=== PATIENT | female | born 1970 | race African-American/Black ===

== ENCOUNTER 2019-04-17 15:48 | Inpatient (IN) | payer OTHER ==
--- NOTE | 2019-04-17 16:25 | PDOC ---
History of Present Illness - General Chief Complaint: Head/Neck problem Stated Complaint: POSSIBLE STROKE Time Seen by Provider: 04/17/19 16:09 - History of Present Illness Initial Comments: Ms. Melchor is a 48 y/o female with PMH significant for DM, TIA 2 years ago, ovarian and cervical CA, brain CA, presenting today with numbness in the right hand that started 1 hour ago while she was shopping. Also reports bilateral facial numbness. Reports that numbness does not go past the right wrist. No pain over the arm. No headache. No speech slurring. No weakness. No fall. Reports that the facial numbness has resolved and the right hand numbness as mostly resolved. She had a TIA 2 years ago, and had similar symptoms of numbness of the left hand without any residual deficits. Past History - Past Medical History Allergies/Adverse Reactions: Allergies Allergy/AdvReac Type Severity Reaction Status Date / Time azithromycin [From Zithromax] Allergy Verified 04/17/19 16:28 Home Medications: Ambulatory Orders Aspirin [ASA -] 325 mg PO DAILY 04/17/19 Glyburide 5 mg PO DAILY 04/17/19 Valacyclovir HCl [Valtrex] 500 mg PO DAILY 04/17/19 metFORMIN HCL [Metformin HCl] 500 mg PO DAILY 04/17/19 Review of Systems - Review of Systems Comments:: GENERAL/CONSTITUTIONAL: No fever or chills. No weakness._ HEAD, EYES, EARS, NOSE AND THROAT: No change in vision. No change in hearing. No sore throat. Reports bilateral facial numbness. CARDIOVASCULAR: No chest pain or shortness of breath_ RESPIRATORY: Denies cough, hemoptysis_ GASTROINTESTINAL: No nausea, vomiting, diarrhea or constipation._ GENITOURINARY: No dysuria, frequency, or change in urination._ MUSCULOSKELETAL: Reports right hand numbness. SKIN: No rash_ NEUROLOGIC: No headache, vertigo, loss of consciousness, or change in strength/ sensation._ ENDOCRINE: No increased thirst. No abnormal weight change_ HEMATOLOGIC/LYMPHATIC: No anemia, easy bleeding, or history of blood clots._ ALLERGIC/IMMUNOLOGIC: No hives or skin allergy._ *Physical Exam - Physical Exam GENERAL: Awake, alert, and oriented to person/place/time, in no acute distress_ HEAD: No signs of trauma, normoc ephalic, atraumatic _ EYES: PERRLA, EOMI, sclera anicteric, conjunctiva clear_ ENT: Hearing grossly normal, nares patent, oropharynx clear without exudates. No uvular deviation. Moist mucosa_ NECK: Normal ROM, supple, no lymphadenopathy, JVD, or masses_ LUNGS: No distress, speaks in full sentences, clear to auscultation bilaterally _ HEART: Regular rate and rhythm, normal S1 and S2, no murmurs appreciated, peripheral pulses normal and equal bilaterally._ ABDOMEN: Soft, nontender, normoactive bowel sounds. No guarding, no rebound. No masses_ EXTREMITIES: Normal inspection, Normal range of motion, no edema. No clubbing or cyanosis_ NEUROLOGICAL: CN II-XII tested and intact. Sensation intact to sharp/dull differentiation in all extremities. Motor: Normal tone and bulk. No abnormal movements appreciated. No pronator drift. Strength tested and 5/5 in bilateral wrist flexion/extension, elbow flexion/extension, shoulder abduction, straight leg raise, knee flexion/ extension, ankle dorsiflexion/plantarflexion. Patient ambulates with a steady gait. Ehs Specialist strength equal bilaterally. Coordination: Finger to nose and heel to carballo testing intact bilaterally. Reflexes: Brachioradialis, biceps, and patellar reflexes WNL and symmetric bilaterally. Babinski with downgoing toes bilaterally. SKIN: Warm, Dry, normal turgor, no rashes or lesions noted_ ED Treatment Course - LABORATORY CBC & Chemistry Diagram: 04/18/19 05:55 04/18/19 05:55 - ADDITIONAL ORDERS Additional order review: Laboratory Results 04/17/19 16:17 POC Glucometer 161 04/17/19 16:17 POC Glucometer 161 Medical Decision Making - Medical Decision Making 04/17/19 16:27 EKG shows 74 bpm, NSR, no ST elevation, QTc 432, no axis deviation. 04/17/19 16:29 CT head negative for stroke. 04/17/19 16:39 48F presenting with right hand numbness. Code stroke activated. NIHSS 0. Stroke work up initiated. 04/17/19 17:27 D/w Dr. Miller who recommends 1g loading dose Keppra, telemetry admission, bilateral carotid dopplers in the morning, cardiology consult. Labs reviewed. Laboratory Tests 04/17/19 04/17/19 04/17/19 16:17 16:28 16:28 WBC RBC Hgb Hct MCV MCH MCHC RDW Plt Count MPV Absolute Neuts (auto) Neutrophils % Lymphocytes % Monocytes % Eosinophils % Basophils % Nucleated RBC % PT with INR 12.40 INR 1.05 PTT (Actin FS) 33.0 Sodium 138 Potassium 4.0 Chloride 104 Carbon Dioxide 28 Anion Gap 6 L BUN 12.8 Creatinine 0.8 Est GFR (CKD-EPI)AfAm 102.47 Est GFR (CKD-EPI)NonAf 88.41 POC Glucometer 161 Random Glucose 162 H Calcium 9.2 Total Bilirubin 0.3 AST 25 ALT 36 Alkaline Phosphatase 93 Creatine Kinase 196 H Creatine Kinase Index No Result Required. CK-MB (CK-2) < 1.0 Troponin I < 0.02 Total Protein 7.1 Albumin 3.4 Triglycerides 129 Cholesterol 148 Total LDL Cholesterol 78 HDL Cholesterol 53 Blood Type Antibody Screen 04/17/19 04/17/19 16:28 16:28 WBC 6.5 RBC 4.13 Hgb 11.4 Hct 35.7 MCV 86.4 MCH 27.7 MCHC 32.0 RDW 12.8 Plt Count 344 MPV 8.2 Absolute Neuts (auto) 3.2 Neutrophils % 48.9 Lymphocytes % 38.6 Monocytes % 8.5 Eosinophils % 3.5 Basophils % 0.5 Nucleated RBC % 0 PT with INR INR PTT (Actin FS) Sodium Potassium Chloride Carbon Dioxide Anion Gap BUN Creatinine Est GFR (CKD-EPI)AfAm Est GFR (CKD-EPI)NonAf POC Glucometer Random Glucose Calcium Total Bilirubin AST ALT Alkaline Phosphatase Creatine Kinase Creatine Kinase Index CK-MB (CK-2) Troponin I Total Protein Albumin Triglycerides Cholesterol Total LDL Cholesterol HDL Cholesterol Blood Type O POSITIVE Antibody Screen Negative 04/17/19 18:07 D/w Dr. Nino who accepts the patient for admission. 04/17/19 18:19 Pt complaining of bifrontal tension headache. [address] Miller. 04/17/19 20:07 D/w [facility] Sawyer who accepts the patient for admission. Discharge - Discharge Information Problems reviewed: Yes Clinical Impression/Diagnosis: TIA (transient ischemic attack) Condition: Stable - Admission Yes - Follow up/Referral - Patient Discharge Instructions - Post Discharge Activity NIH Stroke Scale - Last Known Well Date/Time & Onset Date Last Known Well: 04/17/19 Time Last Known Well: 14:00 - Initial Evaluation Level of consciousness: Alert Ask patient the month and their age: Answers both correctly Ask patient to open & close eyes; make fist and let go: Obeys both correctly Best gaze (horizontal eye movement): Normal Visual field testing: No visual field loss Facial paresis (Show teeth/raise eyebrows/close eyes tight): Normal symmetrical movement Motor Function: Left Arm: Normal Motor Function: Right Arm: Normal (extends arm 90 (or 45) degrees for 10 seconds without drift Motor Function: Left Leg: Normal (extends leg 30 degrees for 5 seconds without drift) Motor Function: Right Leg: Normal (extends leg 30 degrees for 5 seconds without drift) Limb Ataxia: No ataxia Sensory(Use pinprick test arms,legs,trunk,face/side to side): Normal Best language (Describe picture, name items, read sentences): No Aphasia Dysarthria (read several words): Normal articulation Extinction and Inattention: No abnormality - Total Score NIH Stroke Scale Score: 0
[2019-04-17 16:27] VITALS: BMI 29.8
[2019-04-17] MEDS: SODIUM CHLORIDE 1,000 ML IV SCH (16:42)
[2019-04-17 16:47] LABS: BASO % 0.5 % (0-2.0); EOS % 3.5 % (0-4.5); HEMATOCRIT 35.7 % (32.4-45.2); HEMOGLOBIN 11.4 GM/dL (10.7-15.3); LYMPH % 38.6 % (8-40); MCH 27.7 pg (25.7-33.7); MEAN CELL VOLUME 86.4 fl (80-96); MEAN PLT VOLUME 8.2 fl (7.5-11.1); MONO % 8.5 % (3.8-10.2); NEUT % 48.9 % (42.8-82.8); PLATELET COUNT 344 K/MM3 (134-434); RBC 4.13 M/mm3 (3.60-5.2); RDW 12.8 % (11.6-15.6); WHITE BLOOD COUNT 6.5 K/mm3 (4.0-10.0)
[2019-04-17 17:00] LABS: INR 1.05 (0.83-1.09); PROTHROMBIN TIME (PATIENT) 12.4 SEC (9.7-13.0)
[2019-04-17] MEDS ORDERED: levETIRAcetam 500 MG/5 ML INJECTION VIAL IVPB ONE ×2 (17:31→17:59)
[2019-04-17 17:32] LABS: ALBUMIN 3.4 g/dl (3.4-5.0); ALK PHOS 93 U/L (45-117); ANION GAP 6 MMOL/L (8-16); BILIRUBIN,TOTAL 0.3 mg/dL (0.2-1); BLOOD UREA NITROGEN 12.8 mg/dL (7-18); CALCIUM 9.2 mg/dL (8.5-10.1); CHLORIDE 104 mmol/L (98-107); CHOLESTEROL 148 mg/dL (50-200); CO2 28 mmol/L (21-32); GLUCOSE,RANDOM 162 mg/dL (74-106); HDL CHOLESTEROL 53 mg/dL (40-60); LDL CHOLESTEROL (ONLY SJRH) 78 mg/dL (5-100); SGOT/AST 25 U/L (15-37); SGPT/ALT 36 U/L (13-61); SODIUM 138 mmol/L (136-145); TOT PROT 7.1 g/dl (6.4-8.2); TRIGLYCERIDES 129 mg/dL (0-150)
[2019-04-17 18:03] LABS: CREATININE 0.8 mg/dL (0.55-1.3)
--- NOTE | 2019-04-17 18:09 | CONSULT ---
Consult - text type - Consultation Consultation Note: NEUROLOGY CONSULTATION is greatly appreciated: Events reviewed and discussed with Drs Víctor and Jesus. Patient examined in the ED with her mother at the bedside. This 48 yo RH woman with h/o DM is maintained on Metformin and recently added glyburide. H/O Cervical and Ovarian CA (2002) and resection of right frontal brain mass in 2004. Episodic headaches when younger with photophobia c/w migraine headaches Seen by me in the past for chronic nocturnal leg pains c/w RLS and improved on Praqmipexole. Remained improved off meds. Last year had transient weakness and shaking of left hand and arm. Today had transient episode of weakness and numbness right hand and mild numbness of both sides of the face. Resolved in < 5 mins. Now has left frontal headache that she "hasn't had in years." CT of head (reviewed): Old right frontal craniotomy and encephalomalacia. GEORGE: Obese. No bruits. Cor reg. S/P Right frontal craniectomy. NEURO: MS/Speech: Normal CN II-XII: Normal Motor: No drift or tremor. Normal strength, bulk, tone and reflexes. Toes downgoing Coord: No FTN dystaxia Sensory: Normal Gait: Normal IMP: Normal neurological exam. Cannot r/o TIA but suspect the onset of headache is more c/w complicated migraine. Concerned that last years event may have been a partial motor seizure due to old right frontal encephalomalacia. SUGGEST: Duplex doppler If EKG is normal try Sumatriptan 100 mg PO. Neuro f/u EEG as out patient. Thank you very much, Stephen Miller MD
--- NOTE | 2019-04-17 18:14 | PDOC ---
Documentation entered by Monik Almeida SCRIBE, acting as scribe for Tamanna Renee MD. Tamanna Renee MD: This documentation has been prepared by the demetrioibe, Monik Almeida SCRIBE, under my direction and personally reviewed by me in its entirety. I confirm that the documentation accurately reflects all work, treatment, procedures, and medical decision making performed by me. Attending Attestation - Resident Resident Name: Leeroy Lee - ED Attending Attestation I have performed the following: I have examined & evaluated the patient, The case was reviewed & discussed with the resident, I agree w/resident's findings & plan, Exceptions are as noted - HPI HPI: 04/17/19 18:07 The patient is a 48-year-old female with a past medical history significant DM, Ovarian/cervical CA and Brain mass s/p resection who presents to the emergency department with right-sided numbness. The patient reports she was shopping all day today, she ordered food and went she went to pick it up she had an onset of right-sided numbness and dizziness. The patient reports she felt like she was unable to pear picker anything. The patient reports the symptoms improved, but she had a recurrence of the symptoms. At the ER, the patient reports she is back to baseline. - Physicial Exam PE: 04/17/19 18:07 GENERAL: Well developed, well nourished. Awake and alert. No acute distress. HEENT: Normocephalic, atraumatic. PERRLA, EOMI. No conjunctival pallor. Sclera are non- icteric. Moist mucous membranes. Oropharynx is clear. NECK: Supple. Full ROM. No JVD. CARDIOVASCULAR: Regular rate and rhythm. No murmurs, rubs, or gallops. PULMONARY: No evidence of respiratory distress. Lungs clear to auscultation bilaterally. No wheezing, rales or rhonchi. ABDOMINAL: Soft. Non-tender. Non-distended. No rebound or guarding. MUSCULOSKELETAL Normal range of motion at all joints. No bony deformities or tenderness. No CVA tenderness. EXTREMITIES: No cyanosis. No clubbing. No edema. No calf tenderness. SKIN: Warm and dry. Normal capillary refill. No rashes. No jaundice. NEUROLOGICAL: +right hand and face subjective numbness, objectively sensation intact. Alert, awake, appropriate. Cranial nerves 2-12 intact. PSYCHIATRIC: Cooperative. Good eye contact. Appropriate mood and affect. - Medical Decision Making 04/17/19 17:28 48-year-old female past medical history of cervical and ovarian cancer and brain cancer Past surgical history she has had a craniotomy for her brain mass and also TAHBSO 04/17/19 18:13 Dr. Stephen Miller saw the patient bedside and he is her neurologist and states that she has both restless leg syndrome and history of migraines He feels her episode today was a complex migraine or seizure He will start her on Keppra 500 twice daily because she has extensive encephalomalacia due to previous brain lesion and surgery and we will first load her in the emergency department 04/17/19 19:11 04/17/19 19:23 04/17/19 21:38
[2019-04-17] MEDS ORDERED: SUMAtriptan SUCCINATE 50 MG TABLET PO SCH (18:30)
[2019-04-17] MEDS ORDERED: SUMAtriptan SUCCINATE 50 MG TABLET ONE ×2 (18:34→18:36)
--- NOTE | 2019-04-17 20:00 | HP ---
Admitting History and Physical - Primary Care Physician PCP: Mateusz Gabriel - Admission Chief Complaint: Facial Numbness, Right hand Numbness History of Present Illness: This is a 48 y/o woman with a PMHx significant for TIA 2 years ago, DM, Ovarian Ca, Cervical CA, Brain CA. Who presents to the ED with numbness to the right hand and facial numbness while she out eating. Patient reports that the numbness does not go past the right wrist. Patient denies arm pain, headache, speech slurring, weakness. Patient denies fall or LOC. Patient reports that the facial numbness and the right hand numbness has resolved. 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 Gastrointestinal: Yes: Cancer (Ovarian) Reproductive: Yes: Other (Cervical Ca) - Past Surgical History Past Surgical History: Yes: Craniotomy, Hysterectomy, Oopherectomy - Smoking History Smoking history: Never smoked - Alcohol/Substance Use Hx Alcohol Use: No History of Substance Use: reports: None - Social History Usual Living Arrangement: Yes: With Child ADL: Family Assistance History of Recent Travel: No Home Medications - Allergies Allergies/Adverse Reactions: Allergies Allergy/AdvReac Type Severity Reaction Status Date / Time azithromycin [From Zithromax] Allergy Verified 04/17/19 16:28 - Home Medications Home Medications: Ambulatory Orders Aspirin [ASA -] 325 mg PO DAILY 04/17/19 Glyburide 5 mg PO DAILY 04/17/19 Valacyclovir HCl [Valtrex] 500 mg PO DAILY 04/17/19 metFORMIN HCL [Metformin HCl] 500 mg PO DAILY 04/17/19 Family Medical History Family Hx Cancer: Grandmother (maternal) (Unknown), Grandmother (paternal) ( Unknown) Review of Systems - Review of Systems Constitutional: reports: No Symptoms Eyes: reports: No Symptoms HENT: reports: No Symptoms Neck: reports: No Symptoms Cardiovascular: reports: No Symptoms Respiratory: reports: No Symptoms Gastrointestinal: reports: No Symptoms Genitourinary: reports: No Symptoms Breasts: reports: No Symptoms Reported Musculoskeletal: reports: No Symptoms Integumentary: reports: No Symptoms Neurological: reports: Headache, Numbness Endocrine: reports: No Symptoms Hematology/Lymphatic: reports: No Symptoms Psychiatric: reports: No Symptoms Pain Intensity: 6 Physical Examination Vital Signs: Vital Signs Temperature 98.3 F 04/17/19 15:48 Pulse Rate 77 04/17/19 15:48 Respiratory Rate 18 04/17/19 15:48 Blood Pressure 154/102 H 04/17/19 15:48 O2 Sat by Pulse Oximetry (%) 100 04/17/19 15:48 Constitutional: Yes: Well Nourished, No Distress, Calm Eyes: Yes: WNL, Conjunctiva Clear, EOM Intact, PERRL HENT: Yes: WNL, Atraumatic, Normocephalic Neck: Yes: WNL, Supple, Trachea Midline Cardiovascular: Yes: Regular Rate and Rhythm, S1, S2 Respiratory: Yes: WNL, Regular, CTA Bilaterally Gastrointestinal: Yes: WNL, Normal Bowel Sounds, Soft, Abdomen, Obese ...Rectal Exam: Yes: WNL Renal/: Yes: WNL Breast(s): Yes: WNL Musculoskeletal: Yes: WNL Extremities: Yes: WNL Edema: No Peripheral Pulses WNL: Yes Neurological: Yes: Cran Nerves II-XII Intact, Pre-Existing Deficit ...Motor Strength: WNL Psychiatric: Yes: WNL, Alert, Oriented Labs: CBC, BMP 04/17/19 16:28 04/17/19 16:28 Laboratory Results - last 24 hr 04/17/19 04/17/19 04/17/19 16:17 16:28 16:28 WBC RBC Hgb Hct MCV MCH MCHC RDW Plt Count MPV Absolute Neuts (auto) Neutrophils % Lymphocytes % Monocytes % Eosinophils % Basophils % Nucleated RBC % PT with INR 12.40 INR 1.05 PTT (Actin FS) 33.0 Sodium 138 Potassium 4.0 Chloride 104 Carbon Dioxide 28 Anion Gap 6 L BUN 12.8 Creatinine 0.8 Est GFR (CKD-EPI)AfAm 102.47 Est GFR (CKD-EPI)NonAf 88.41 POC Glucometer 161 Random Glucose 162 H Calcium 9.2 Total Bilirubin 0.3 AST 25 ALT 36 Alkaline Phosphatase 93 Creatine Kinase 196 H Creatine Kinase Index No Result Required. CK-MB (CK-2) < 1.0 Troponin I < 0.02 Total Protein 7.1 Albumin 3.4 Triglycerides 129 Cholesterol 148 Total LDL Cholesterol 78 HDL Cholesterol 53 Blood Type Antibody Screen 04/17/19 04/17/19 16:28 16:28 WBC 6.5 RBC 4.13 Hgb 11.4 Hct 35.7 MCV 86.4 MCH 27.7 MCHC 32.0 RDW 12.8 Plt Count 344 MPV 8.2 Absolute Neuts (auto) 3.2 Neutrophils % 48.9 Lymphocytes % 38.6 Monocytes % 8.5 Eosinophils % 3.5 Basophils % 0.5 Nucleated RBC % 0 PT with INR INR PTT (Actin FS) Sodium Potassium Chloride Carbon Dioxide Anion Gap BUN Creatinine Est GFR (CKD-EPI)AfAm Est GFR (CKD-EPI)NonAf POC Glucometer Random Glucose Calcium Total Bilirubin AST ALT Alkaline Phosphatase Creatine Kinase Creatine Kinase Index CK-MB (CK-2) Troponin I Total Protein Albumin Triglycerides Cholesterol Total LDL Cholesterol HDL Cholesterol Blood Type O POSITIVE Antibody Screen Negative Intake & Output 04/15/19 04/16/19 04/17/19 04/18/19 23:59 23:59 23:59 23:59 Weight 97.069 kg Current Medications Generic Name Dose Route Start Last Admin Trade Name Freq PRN Reason Stop Dose Admin Aspirin 325 mg 04/18/19 10:00 Asa - PO DAILY JULEE Glyburide 5 mg 04/18/19 07:00 Diabeta - PO ACBK JULEE Sodium Chloride 1,000 mls @ 42 mls/hr 04/17/19 16:15 04/17/19 16:42 Normal Saline - IV 42 mls/hr ASDIR JULEE Administration Insulin Aspart 1 vial 04/18/19 07:00 Novolog Vial Sliding Scale - SQ ACHS [facility] Protocol Levetiracetam 500 mg 04/18/19 10:00 Keppra Injection - IVPB BID JULEE Metformin HCl 500 mg 04/18/19 07:00 Glucophage - PO ACBK JULEE Sumatriptan Succinate 100 mg 04/17/19 18:30 04/17/19 18:38 Imitrex - PO 100 mg ONCE JULEE Administration Valacyclovir HCl 500 mg 04/18/19 10:00 Valtrex - PO DAILY JULEE Imaging - Results Cat Scan: Report Reviewed, Image Reviewed Ultrasound: Pending EKG: Image Reviewed Problem List - Problems (1) TIA (transient ischemic attack) Assessment/Plan: r/o Stroke vs Seizure NIHSS [address]- neg acute infarct Neurology following Keppra given in ED, will continue per Neurology recommendations Neurochecks Continue cardiac monitoring Carotid Doppler-pending Seizure Precautions Dunn Discharge [facility]-161 Code(s): G45.9 - TRANSIENT CEREBRAL ISCHEMIC ATTACK, UNSPECIFIED (2) Diabetes mellitus Assessment/Plan: stable BGMs Continue home med HgbA1c in am Code(s): E11.9 - TYPE 2 DIABETES MELLITUS WITHOUT COMPLICATIONS Assessment/Plan This is a 48 y/o woman admitted to Telemetry for TIA for further evaluation of their emergent condition for further evaluation of their emergent condition Visit type - Emergency Visit Emergency Visit: Yes ED Registration Date: 04/17/19 Care time: The patient presented to the Emergency Department on the above date and was hospitalized for further evaluation of their emergent condition. - New Patient This patient is new to me today: Yes Date on this admission: 04/17/19 - Critical Care Critical Care patient: No
[2019-04-18 06:24] LABS: BASO % 0.4 % (0-2.0); EOS % 3.7 % (0-4.5); HEMATOCRIT 36.5 % (32.4-45.2); HEMOGLOBIN 11.9 GM/dL (10.7-15.3); LYMPH % 33.7 % (8-40); MCH 27.7 pg (25.7-33.7); MCHC 32.6 g/dl (32.0-36.0); MEAN PLT VOLUME 8.1 fl (7.5-11.1); MONO % 7.9 % (3.8-10.2); NEUT % 54.3 % (42.8-82.8); PLATELET COUNT 365 K/MM3 (134-434); RDW 12.5 % (11.6-15.6); WHITE BLOOD COUNT 6.1 K/mm3 (4.0-10.0)
[2019-04-18 06:41] LABS: BLOOD UREA NITROGEN 10.9 mg/dL (7-18); CALCIUM 9.3 mg/dL (8.5-10.1); CREATININE 0.7 mg/dL (0.55-1.3); POTASSIUM 4.4 mmol/L (3.5-5.1)
[2019-04-18] MEDS ORDERED: metFORMIN HCL 500 MG TABLET (FP) ONE (07:21)
[2019-04-18] MEDS: metFORMIN HCL 500 MG TABLET (FP) PO SCH (07:25)
[2019-04-18] MEDS: INSULIN SLIDING SCALE (NOVOLOG) 1 VIAL SQ SCH ×5 (07:58→21:41)
--- NOTE | 2019-04-18 09:18 | EKG ---
Test Reason : Blood Pressure : / mmHG Vent. Rate : 074 BPM Atrial Rate : 074 BPM P-R Int : 142 ms QRS Dur : 084 ms QT Int : 390 ms P-R-T Axes : 054 013 051 degrees QTc Int : 432 ms NORMAL SINUS RHYTHM Motion artifact ABNORMAL ECG WHEN COMPARED WITH ECG OF 26-SEP-2003 09:02, NO SIGNIFICANT CHANGE IS FOUND Confirmed by Peterson Frank ([id number]) on 04/18/2019 9:18:30 AM Referred By: Confirmed By:Peterson Frank
[2019-04-18] MEDS: ASPIRIN 325 MG TABLET PO SCH (10:00)
[2019-04-18] MEDS: valACYclovir HCL 500 MG TABLET (FP) PO SCH (10:00)
[2019-04-18] MEDS: glyBURIDE 5 MG TABLET PO SCH (10:00)
--- NOTE | 2019-04-18 10:15 | PN ---
Progress Note, Physician - Current Medication List Current Medications: Active Medications Aspirin (Asa -) 325 mg PO DAILY [facility] Glyburide (Diabeta -) 5 mg PO ACBK [facility] Sodium Chloride (Normal Saline -) 1,000 mls @ 42 mls/hr IV ASDIR [facility] Last Admin: 04/17/19 16:42 Dose: 42 mls/hr Insulin Aspart (Novolog Vial Sliding Scale -) 1 vial SQ ACHS [facility]; Protocol Last Admin: 04/18/19 07:58 Dose: Not Given Levetiracetam (Keppra Injection -) 500 mg IVPB BID [facility] Metformin HCl (Glucophage -) 500 mg PO ACBK [facility] Last Admin: 04/18/19 07:25 Dose: 500 mg Sumatriptan Succinate (Imitrex -) 100 mg PO ONCE [facility] Last Admin: 04/17/19 18:38 Dose: 100 mg Valacyclovir HCl (Valtrex -) 500 mg PO DAILY [facility] - Objective Vital Signs: Vital Signs Temperature 98.1 F 04/18/19 06:32 Pulse Rate 79 04/18/19 06:32 Respiratory Rate 15 04/18/19 06:32 Blood Pressure 143/84 04/18/19 06:32 O2 Sat by Pulse Oximetry (%) 99 04/18/19 06:32 Cardiovascular: Yes: Regular Rate and Rhythm Respiratory: Yes: Regular, CTA Bilaterally Gastrointestinal: Yes: Normal Bowel Sounds, Soft Neurological: Yes: Alert, Oriented. No: Weakness Labs: CBC, BMP 04/18/19 05:55 04/18/19 05:55 INR, PTT INR 1.05 (0.83-1.09) 04/17/19 16:28 Problem List - Problems (1) TIA (transient ischemic attack) Assessment/Plan: r/o Stroke vs Seizure Head CT- neg acute infarct--mri if pt agrees Neurology following Keppra given in ED, will continue per Neurology recommendations Neurochecks Continue cardiac monitoring Carotid Doppler-pending Seizure Precautions Code(s): G45.9 - TRANSIENT CEREBRAL ISCHEMIC ATTACK, UNSPECIFIED (2) Diabetes mellitus Assessment/Plan: stable BGMs Continue home med HgbA1c in am Code(s): E11.9 - TYPE 2 DIABETES MELLITUS WITHOUT COMPLICATIONS (3) Brain cancer Assessment/Plan: mri if pt can tolerate neuro following Code(s): C71.9 - MALIGNANT NEOPLASM OF BRAIN, UNSPECIFIED (4) Gynecologic malignancy Code(s): C57.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
[2019-04-18] MEDS: levETIRAcetam 500 MG/5 ML INJECTION VIAL IVPB SCH ×2 (11:00→21:39)
--- NOTE | 2019-04-18 15:53 | CONSULT ---
Admitting History and Physical - Primary Care Physician PCP: Fallon Hwang - Admission History of Present Illness: 48 y/o woman with a PMHx significant for TIA 2 years ago, DM, Ovarian Ca, Cervical CA, Brain CA. Who presents to the ED with numbness to the right hand and facial numbness while she out eating. 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 Gastrointestinal: Yes: Cancer (Ovarian) ...LMP: 04/18/19 - Past Surgical History Past Surgical History: Yes: Craniotomy, Hysterectomy, Oopherectomy - Smoking History Smoking history: Never smoked - Alcohol/Substance Use Hx Alcohol Use: No History of Substance Use: reports: None - Social History ADL: Family Assistance History of Recent Travel: No History - Admission Reason For Visit: TRANSIENT ISCHEMIC ATTACK,NUMBNESS - Diagnostics CT Scan: Report Reviewed - General Mental Status: Alert and Oriented, Awake and Alert, Able to Follow Commands Attention: Intact Ability to Follow Directions: Excellent Head/Neck Control: WFL - Hearing Hearing: Normal Speech Evaluation - Communication Primary Language: SAMMARINESE Communication: Yes: Within Normal Limits Oral Expression Ability: Yes: No Impairment - Speech Production Able to Make Needs Known: Yes: WNL Intelligibility: Yes: WNL - Speech Characteristics Voice Loudness: Normal Voice Pitch: Yes: Normal Voice Phonatory-based Quality: Yes: Normal Speech Pattern: Normal Speech Clarity: < 100% Nasal Resonance: Normal Articulation: Yes: Precise Rate of Speech: Intact - Language/Auditory Comprehension Follows: Yes: 2 Stage Simple Commands - Language/Verbal Expression Able to Respond to Simple Queries: Yes: WNL Able to Communicate Wants and Needs: Yes: WNL Functional Communication Status: Yes: WNL - 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 Memory: Yes: WNL Short Term Memory: Yes: WNL - Swallow Evaluation/Bedside Assessment Current Nutritional Intake: Regular, Thin Liquids Oral Secretions: Yes: WFL Dentition: Yes: Adequate Facial Symmetry at Rest: Symmetrical Facial Symmetry on Retraction: Symmetrical Facial Movement: Controlled Sensation: Normal Jaw Position: Open at Rest Against Resistance Opening: Normal Against Resistance Closing: Normal Pucker Lips: Normal Smile: Normal Lingual Movement: Normal, Symmetric Lingual Speed of Movement: Normal Lingual Movement Strgth Against Opposition: Normal Lingual Movement Characteristics: Normal Velopharyngeal Movement: Normal Laryngeal Elevation: WFL Laryngeal Movement: Able to Palpate Rate of Intake: WFL Bolus Size: WFL Labial Seal: WFL Chewing: WFL Oral Prep Time: WFL A-P Transit: WFL Pocketing: None Timing of Swallow: WFL Coughing/Throat Clear: No Change in Voice: No Recommendations - Speech Evaluation, Impression/Plan Impression: Speech, swallow, language, cognition intact - Dysphagia Impressions/Plan Swallowing Skills: WF Dysphagia Impressions: No Impairment *Silent aspiration: cannot be R/O at bedside Dysphagia Treatment Plan: OOB for meals, OOB for 1 h. after meals - Recommendations Diet Consistency: Regular Medication Administration: Whole with water Liquids: Thin Liquids
[2019-04-18] MEDS: SODIUM CHLORIDE 1,000 ML IV SCH (17:42)
[2019-04-19] MEDS ORDERED: PT OWN MED DRAWER 7, Y5N ONE ×2 (05:17→10:08)
[2019-04-19] MEDS: glyBURIDE 5 MG TABLET PO SCH (06:36)
[2019-04-19] MEDS: INSULIN SLIDING SCALE (NOVOLOG) 1 VIAL SQ SCH ×2 (06:36→11:33)
[2019-04-19] MEDS: metFORMIN HCL 500 MG TABLET (FP) PO SCH (06:36)
--- NOTE | 2019-04-19 08:51 | PN ---
Progress Note, Physician - Current Medication List Current Medications: Active Medications Aspirin (Asa -) 325 mg PO DAILY [facility] Last Admin: 04/18/19 10:00 Dose: 325 mg Glyburide (Diabeta -) 5 mg PO ACBK [facility] Last Admin: 04/19/19 06:36 Dose: 5 mg Sodium Chloride (Normal Saline -) 1,000 mls @ 42 mls/hr IV ASDIR [facility] Last Admin: 04/18/19 17:42 Dose: Not Given Insulin Aspart (Novolog Vial Sliding Scale -) 1 vial SQ ACHS [facility]; Protocol Last Admin: 04/19/19 06:36 Dose: Not Given Levetiracetam (Keppra Injection -) 500 mg IVPB BID [facility] Last Admin: 04/18/19 21:39 Dose: 500 mg Metformin HCl (Glucophage -) 500 mg PO ACBK [facility] Last Admin: 04/19/19 06:36 Dose: 500 mg Valacyclovir HCl (Valtrex -) 500 mg PO DAILY [facility] Last Admin: 04/18/19 10:00 Dose: 500 mg - Objective Vital Signs: Vital Signs Temperature 98.1 F 04/19/19 06:00 Pulse Rate 71 04/19/19 06:00 Respiratory Rate 20 04/19/19 06:00 Blood Pressure 134/77 04/19/19 06:00 O2 Sat by Pulse Oximetry (%) 98 04/18/19 21:00 Labs: CBC, BMP 04/18/19 05:55 04/18/19 05:55 INR, PTT INR 1.05 (0.83-1.09) 04/17/19 16:28
--- NOTE | 2019-04-19 09:21 | DS ---
Physical Examination Vital Signs: Vital Signs Temperature 98.1 F 04/19/19 06:00 Pulse Rate 71 04/19/19 06:00 Respiratory Rate 20 04/19/19 06:00 Blood Pressure 134/77 04/19/19 06:00 O2 Sat by Pulse Oximetry (%) 98 04/18/19 21:00 Findings/Remarks: PASSED SWALLOW EVAL NO HEADACHE OR CHEST PAIN FEELS GOOD WANTS TO GO HOME Constitutional: Yes: No Distress Eyes: Yes: WNL HENT: Yes: WNL Neck: Yes: WNL Cardiovascular: Yes: WNL Respiratory: Yes: WNL Gastrointestinal: Yes: WNL Musculoskeletal: Yes: WNL Extremities: Yes: WNL Edema: No Integumentary: Yes: WNL Wound/Incision: Yes: Clean/Dry Neurological: Yes: WNL ...Motor Strength: WNL Psychiatric: Yes: WNL Labs: CBC, BMP 04/18/19 05:55 04/18/19 05:55 Discharge Summary Problems reviewed: Yes Reason For Visit: TRANSIENT ISCHEMIC ATTACK,NUMBNESS Current Active Problems Brain cancer (Acute) Diabetes mellitus (Acute) Gynecologic malignancy (Acute) TIA (transient ischemic attack) (Acute) Procedures: Principal: CT HEAD Hospital Course: ADMITTED WORKED UP WITH NEUROLOGY ON TELEMETRY WITH NO ALARMS WILL DC HOME AND F/U OUTPATIENT WITH DR AGUSTIN Plan of Treatment: KEEP BLOOD PRESSURE AND LIPIDS CONTROLLED Goals: DIABETIC CONTROL, WEIGHT LOSS AND EXERCISE Condition: Stable - Instructions Diet, Activity, Other Instructions: SEE DR AGUSTIN TOMORROW SEE DR DR ARMANDO IN 2 DAYS Referrals: Mateusz Gabriel MD [Primary Care Provider] - Disposition: HOME - Home Medications Comprehensive Discharge Medication List: Ambulatory Orders Aspirin [ASA -] 325 mg PO DAILY 04/17/19 Glyburide 5 mg PO DAILY 04/17/19 Valacyclovir HCl [Valtrex] 500 mg PO DAILY 04/17/19 metFORMIN HCL [Metformin HCl] 500 mg PO DAILY 04/17/19
[2019-04-19 09:52] VITALS: BP 155/81; PULSE 76; TEMP 99.1
[2019-04-19] MEDS: ASPIRIN 325 MG TABLET PO SCH (10:12)
[2019-04-19] MEDS: valACYclovir HCL 500 MG TABLET (FP) PO SCH (10:12)
[2019-04-19] MEDS: levETIRAcetam 500 MG/5 ML INJECTION VIAL IVPB SCH (10:12)
[2019-04-19] MEDS ORDERED: ATORVASTATIN CA 20 MG TABLET (FP) PO SCH (22:00)
== END 2019-04-19 11:42 | disposition home or self-care (01) | DRG 69 ==
LOC: SUPCPDRO 15:48 → JER 15:48 → JERBED 18:04 → J4W 04-18 14:45
PROVIDERS: ADMIT Internal Medicine; ATTEND Family Medicine
DX: G45.9 Transient cerebral ischemic attack, unspecified (principal); C71.9 Malignant neoplasm of brain, unspecified; E11.9 Type 2 diabetes mellitus without complications; C57.9 Malignant neoplasm of female genital organ, unspecified; R20.0 Anesthesia of skin
CPT/HCPCS: 36415; 70450-TC; 80048; 80053; 80061; 82550; 82553; 82962; 83036; 83721; 84484; 85025; 85610; 85730; 86850; 86900; 86901; 93005; 93010; 93880-TC; 99285-25; J7030

== ENCOUNTER 2020-04-23 14:25 | Emergency (ER) | payer OTHER | END 2020-04-23 15:26 | disposition home or self-care (01) | LOC: JVIRT 14:25 | DX: Z11.52 Encounter for screening for COVID-19 (principal) | CPT/HCPCS: G2251-GT; Q3014-GT ==